=== PATIENT | male | born 1995 | race African-American/Black ===

== ENCOUNTER → 2017-01-16 | Outpatient (CLI) | payer BC, SELFPAY | LOC: M OUTALCOH 12:50 | PROVIDERS: ATTEND Psychiatry & Neurology Psychiatry | DX: F12.20 Cannabis dependence, uncomplicated (principal) ==

== ENCOUNTER 2017-02-12 13:00 | Outpatient (RCR) | payer MEDICAID, SELFPAY | END 2017-02-19 | LOC: M OUTALCOH 13:00 | PROVIDERS: ATTEND Psychiatry & Neurology Psychiatry | DX: F12.20 Cannabis dependence, uncomplicated (principal) ==

== ENCOUNTER → 2017-05-21 | Outpatient (RCR) | payer MEDICAID | LOC: M OUTALCOH 05-12 11:00 | PROVIDERS: ATTEND Psychiatry & Neurology Psychiatry | DX: F12.20 Cannabis dependence, uncomplicated (principal); F11.10 Opioid abuse, uncomplicated; F14.10 Cocaine abuse, uncomplicated ==

== ENCOUNTER 2017-05-22 14:42 | Outpatient (RCR) | payer MEDICAID | END 2017-06-21 | LOC: M OUTALCOH 14:42 | DX: F12.20 Cannabis dependence, uncomplicated (principal); F11.10 Opioid abuse, uncomplicated; F14.10 Cocaine abuse, uncomplicated ==

== ENCOUNTER → 2019-12-03 | Outpatient (REF) | payer MEDICAID, OTHER, SELFPAY | LOC: M WUC 17:37 | PROVIDERS: ATTEND Nurse Practitioner Family | DX: Z03.818 Encounter for observation for suspected exposure to other biological agents ruled out (principal); Z11.59 Encounter for screening for other viral diseases ==

== ENCOUNTER 2021-11-05 08:19 | Emergency (ER) | payer OTHER, SELFPAY ==
[~2021-11-05] VITALS: Ht 190.5 cm; Wt 94.7 kg
[2021-11-05] MEDS ORDERED: CITA20TA7 PO (08:28)
[2021-11-05 09:00] VITALS: BP 123/72
== END 2021-11-05 09:17 | disposition home or self-care (01) ==
LOC: M ED 08:19 → EDBD 08:19 → M ED 09:17
DX: T40.0X1A Poisoning by opium, accidental (unintentional), initial encounter (principal); Z79.899 Other long term (current) drug therapy; Z88.0 Allergy status to penicillin